=== PATIENT | male | born 1970 | race Caucasian/White ===

== ENCOUNTER 2020-12-14 14:30 | Emergency (ER) | payer BC, OTHER ==
[~2020-12-14] VITALS: Ht 190.5 cm; Wt 96.6 kg
[2020-12-14 14:38] VITALS: BP_SYST 131
[2020-12-14] MEDS ORDERED: OMEP1CAP25 PO (14:57)
[2020-12-14] MEDS ORDERED: MAG HYDROX/AL HYDROX/SIMETH 30 ML, DICYCLOMINE HCL 20 MG, LIDOCAINE VISCOUS 2% 15ML (PO... PO ONE ×3 (15:00)
[2020-12-14 15:04] VITALS: BP_SYST 131
[2020-12-14] MEDS ORDERED: METF-379 PO (19:32)
[2020-12-14] MEDS ORDERED: LIP10 PO (19:32)
== END 2020-12-14 15:06 | disposition home or self-care (01) ==
LOC: SED 14:30
DX: K21.9 Gastro-esophageal reflux disease without esophagitis (principal); R07.89 Other chest pain; E11.9 Type 2 diabetes mellitus without complications; F17.200 Nicotine dependence, unspecified, uncomplicated
CPT/HCPCS: 93005; 99283

== ENCOUNTER 2020-12-14 16:43 | Inpatient (IN) | payer BC, SELFPAY ==
[~2020-12-14] VITALS: Ht 190.5 cm; Wt 100.7 kg
[2020-12-14 16:43] VITALS: BP_SYST 152
[~2020-12-14 16:43] MED LIST: OMEP1CAP25 PO
[2020-12-14] MEDS ORDERED: KETOROLAC TROMETHAMINE 60 MG/2 ML VIAL IM ONE ×2 (16:55→17:00)
[2020-12-14 17:24] LABS: BLOOD, URINE NEGATIVE (NEGATIVE); CLARITY/URINE CLEAR (CLEAR); COLOR,URINE YELLOW (YELLOW); GLUCOSE,URINE NEGATIVE (NEGATIVE); KETONES,URINE 3+ (NEGATIVE); LEUKOCYTE ESTERASE ,URINE NEGATIVE (NEGATIVE); NITRITE, URINE NEGATIVE (NEGATIVE); PROTEIN URINE NEGATIVE (NEGATIVE); UROBILINOGEN,URINE 0.2 (0.2-1.0)
[2020-12-14 17:27] LABS: BILIRUBIN,URINE NEGATIVE (NEGATIVE)
[2020-12-14 17:28] LABS: BASOPHILS % (AUTO) 0.3 % (0.0-2.0); EOSINOPHILS % (AUTO) 0.1 % (0.0-4.0); HEMATOCRIT 41.2 % (36-54); HEMOGLOBIN 14.2 g/dL (14.0-18.0); LYMPHOCYTES % (AUTO) 6.9 % (20.5-51.5); MEAN CORPUSCULAR HEMOGLOBIN 28 pg (27-31); MEAN CORPUSCULAR HGB CONC 34 % (32-36); MEAN CORPUSCULAR VOLUME 81 fL (79.0-98.0); MONOCYTES # (AUTO) 0.9 K/uL (0.0-1.0); MONOCYTES % (AUTO) 6.3 % (1.7-9.3); NEUTROPHILS % (AUTO) 86.4 % (40.0-70.0); PLATELET COUNT (AUTO) 205 K/uL (130-430); RED BLOOD CELL COUNT(AUTO) 5.07 MIL/uL (4.2-6.2); RED CELL DISTRIBUTION WIDTH 13.7 % (9.0-15.0)
[2020-12-14 17:41] LABS: CALCIUM 9.4 mg/dL (8.4-11.0); CREATININE 1.11 mg/dL (0.55-1.30); POTASSIUM 3.6 mmol/L (3.5-5.1)
[2020-12-14 17:47] LABS: ALBUMIN 4.3 g/dL (3.4-4.8); TOTAL BILIRUBIN 0.8 mg/dL (0.0-1.0)
[2020-12-14] MEDS ORDERED: KETOROLAC TROMETHAMINE 30 MG VIAL ONE (18:00)
[2020-12-14] MEDS ORDERED: MORPHINE 4 MG/ML INJ. SYRINGE IVP ONE (19:15)
[2020-12-14] MEDS ORDERED: metroNIDAZOLE 500 mg/NS 100 ML IV ONE (19:15)
[2020-12-14] MEDS ORDERED: PIPERACILLIN/TAZO 3.38 GM in NS 50 ML IV ONE (19:15)
[2020-12-14] MEDS ORDERED: ONDANSETRON HCL 4 MG/2 ML VIAL IVP ONE (19:15)
[2020-12-14] MEDS ORDERED: NACL 0.9% 1,000 ML IV ONE ×2 (19:15)
[2020-12-14] MEDS ORDERED: METF-379 PO (19:32)
[2020-12-14] MEDS ORDERED: LIP10 PO (19:32)
[2020-12-14] MEDS ORDERED: PIPERACILLIN/TAZOBACTAM 3.375 GM/VIAL (ZOSYN) IV ONE (20:27)
[2020-12-14 21:25] VITALS: BP_SYST 129
[2020-12-14] MEDS ORDERED: MORPHINE 4 MG/ML INJ. SYRINGE IVP PRN (22:30)
[2020-12-14] MEDS ORDERED: LEVOFLOXACIN 500 MG/D5W 100 ML IV ONE (22:47)
[2020-12-14] MEDS: LEVOFLOXACIN 500 MG/D5W 100 ML IV SCH (22:50)
[2020-12-14] MEDS: NACL 0.9% 1,000 ML IV SCH (22:51)
[2020-12-15] VITALS: BP_SYST 124
[2020-12-15] MEDS ORDERED: metroNIDAZOLE 500 mg/NS 100 ML IV ONE (05:37)
[2020-12-15] MEDS: metroNIDAZOLE 500 mg/NS 100 ML IV SCH ×3 (05:47→22:08)
[2020-12-15] MEDS ORDERED: FLU VACC QS2020-21 (6 mos & up) 0.5 ML/SYRINGE I.M. PRN (06:00)
[2020-12-15] MEDS ORDERED: FLU VACC QS2020-21 (6 mos & up) 0.5 ML/SYRINGE I.M. ONE (06:27)
[2020-12-15 08:00] VITALS: BP_SYST 110
[2020-12-15 08:17] LABS: BASOPHILS # (AUTO) 0.1 K/uL (0.0-0.2); BASOPHILS % (AUTO) 0.5 % (0.0-2.0); EOSINOPHILS # (AUTO) 0.1 K/uL (0.0-0.4); EOSINOPHILS % (AUTO) 0.4 % (0.0-4.0); HEMOGLOBIN 14.2 g/dL (14.0-18.0); MEAN CORPUSCULAR HEMOGLOBIN 28 pg (27-31); MEAN CORPUSCULAR HGB CONC 34 % (32-36); MEAN CORPUSCULAR VOLUME 82 fL (79.0-98.0); MONOCYTES # (AUTO) 1.3 K/uL (0.0-1.0); MONOCYTES % (AUTO) 11.5 % (1.7-9.3); NEUTROPHILS # (AUTO) 8.8 K/uL (1.8-7.7); NEUTROPHILS % (AUTO) 78.6 % (40.0-70.0); PLATELET COUNT (AUTO) 166 K/uL (130-430); RED BLOOD CELL COUNT(AUTO) 5.16 MIL/uL (4.2-6.2); RED CELL DISTRIBUTION WIDTH 13.7 % (9.0-15.0); WHITE BLOOD COUNT (AUTO) 11.2 K/uL (4.8-10.8)
[2020-12-15 08:39] LABS: CALCIUM 8.3 mg/dL (8.4-11.0); CREATININE 0.95 mg/dL (0.55-1.30); POTASSIUM 3.7 mmol/L (3.5-5.1)
[2020-12-15 08:45] LABS: ALBUMIN 3.2 g/dL (3.4-4.8); TOTAL BILIRUBIN 0.7 mg/dL (0.0-1.0)
[2020-12-15 08:56] LABS: INR 1.1 (0.80-1.20); PROTHROMBIN TIME 11.4 SECS (9.5-12.5)
[2020-12-15] MEDS: NACL 0.9% 1,000 ML IV SCH ×2 (10:05→13:44)
[2020-12-15 11:49] VITALS: BP_SYST 121
[2020-12-15 16:00] VITALS: BP_SYST 129
[2020-12-15] MEDS ORDERED: MINERAL OIL 30 ML UDC PO ONE (18:30)
[2020-12-15 20:00] VITALS: BP_SYST 122
[2020-12-15] MEDS ORDERED: ACETAMINOPHEN 325 MG TABLET PO PRN (20:30)
[2020-12-15] MEDS ORDERED: ACETAMINOPHEN 325 MG TABLET ONE (20:46)
[2020-12-15] MEDS: LEVOFLOXACIN 500 MG/D5W 100 ML IV SCH (20:50)
[2020-12-16 00:20] VITALS: BP_SYST 117
[2020-12-16] MEDS: NACL 0.9% 1,000 ML IV SCH ×2 (03:39→17:41)
[2020-12-16] MEDS: metroNIDAZOLE 500 mg/NS 100 ML IV SCH ×3 (06:44→22:21)
[2020-12-16] MEDS: INSULIN REGULAR, HUMAN 100 UNITS/ML, 10 ML VIAL (humuLIN R) SUBCUT PRN ×2 (06:47→17:45)
[2020-12-16 07:10] LABS: BASOPHILS % (AUTO) 0.2 % (0.0-2.0); HEMATOCRIT 40.6 % (36-54); HEMOGLOBIN 13.8 g/dL (14.0-18.0); LYMPHOCYTES # (AUTO) 1.1 K/uL (1.0-5.5); LYMPHOCYTES % (AUTO) 6.6 % (20.5-51.5); MEAN CORPUSCULAR HEMOGLOBIN 28 pg (27-31); MEAN CORPUSCULAR HGB CONC 34 % (32-36); MEAN CORPUSCULAR VOLUME 82 fL (79.0-98.0); MONOCYTES % (AUTO) 12.1 % (1.7-9.3); NEUTROPHILS # (AUTO) 13.1 K/uL (1.8-7.7); NEUTROPHILS % (AUTO) 81.1 % (40.0-70.0); PLATELET COUNT (AUTO) 155 K/uL (130-430); RED BLOOD CELL COUNT(AUTO) 4.95 MIL/uL (4.2-6.2); RED CELL DISTRIBUTION WIDTH 13.8 % (9.0-15.0); WHITE BLOOD COUNT (AUTO) 16.1 K/uL (4.8-10.8)
[2020-12-16 07:23] LABS: ALBUMIN 2.9 g/dL (3.4-4.8); CALCIUM 8.2 mg/dL (8.4-11.0); CREATININE 0.94 mg/dL (0.55-1.30); POTASSIUM 3.6 mmol/L (3.5-5.1)
[2020-12-16 07:52] LABS: TOTAL BILIRUBIN 1.1 mg/dL (0.0-1.0)
[2020-12-16 08:00] VITALS: BP_SYST 122
[2020-12-16 12:00] VITALS: BP_SYST 124
[2020-12-16 16:00] VITALS: BP_SYST 132
[2020-12-16 20:00] VITALS: BP_SYST 118
[2020-12-16] MEDS: LEVOFLOXACIN 500 MG/D5W 100 ML IV SCH (21:14)
[2020-12-17] VITALS (7 sets, daily range): BP systolic 112–127
[2020-12-17] MEDS: NACL 0.9% 1,000 ML IV SCH (05:54)
[2020-12-17] MEDS: metroNIDAZOLE 500 mg/NS 100 ML IV SCH ×2 (05:54→17:00)
[2020-12-17 10:04] LABS: ALBUMIN 2.5 g/dL (3.4-4.8); BILIRUBIN,DIRECT 0.2 mg/dL (0.0-0.3); TOTAL BILIRUBIN 0.8 mg/dL (0.0-1.0)
[2020-12-17] MEDS ORDERED: ONDANSETRON HCL 4 MG/2 ML VIAL IVP PRN (14:45)
[2020-12-17] MEDS ORDERED: NALOXONE HCL 0.4 MG/ML AMP (NARCAN) IVP PRN ×2 (14:45)
[2020-12-17] MEDS ORDERED: HYDROcodone/ACETAMIN 5-325 MG TAB (NORCO/ VICODIN) PO PRN (14:45)
[2020-12-17] MEDS ORDERED: HYDROmorphone 1 MG INJ. 1 MG/ML AMPUL IVP PRN (14:45)
[2020-12-17] MEDS ORDERED: ACETAMINOPHEN 325 MG TABLET PO PRN (14:45)
[2020-12-17] MEDS ORDERED: INSULIN REGULAR, HUMAN 100 UNITS/ML, 10 ML VIAL ONE (15:35)
[2020-12-17] MEDS: INSULIN REGULAR, HUMAN 100 UNITS/ML, 10 ML VIAL (humuLIN R) SUBCUT PRN (15:37)
[2020-12-17] MEDS: D5/0.45 NS 1,000 ML IV SCH (16:04)
[2020-12-17] MEDS: CEFAZOLIN 2 GM IVPB PREMIX 50 ML IV SCH ×2 (17:00→23:05)
[2020-12-18] MEDS: metroNIDAZOLE 500 mg/NS 100 ML IV SCH (01:21)
[2020-12-18] MEDS: D5/0.45 NS 1,000 ML IV SCH ×2 (01:26→10:54)
[2020-12-18] MEDS: INSULIN REGULAR, HUMAN 100 UNITS/ML, 10 ML VIAL (humuLIN R) SUBCUT PRN ×2 (06:00→11:41)
[2020-12-18 07:56] LABS: BASOPHILS % (AUTO) 0.1 % (0.0-2.0); EOSINOPHILS % (AUTO) 0.1 % (0.0-4.0); HEMOGLOBIN 11.9 g/dL (14.0-18.0); LYMPHOCYTES # (AUTO) 0.8 K/uL (1.0-5.5); MEAN CORPUSCULAR HEMOGLOBIN 27 pg (27-31); MEAN CORPUSCULAR HGB CONC 34 % (32-36); MEAN CORPUSCULAR VOLUME 81 fL (79.0-98.0); MONOCYTES % (AUTO) 9.3 % (1.7-9.3); NEUTROPHILS # (AUTO) 9.4 K/uL (1.8-7.7); NEUTROPHILS % (AUTO) 83.5 % (40.0-70.0); PLATELET COUNT (AUTO) 183 K/uL (130-430); RED BLOOD CELL COUNT(AUTO) 4.33 MIL/uL (4.2-6.2); RED CELL DISTRIBUTION WIDTH 13.6 % (9.0-15.0); WHITE BLOOD COUNT (AUTO) 11.2 K/uL (4.8-10.8)
[2020-12-18 08:05] VITALS: BP_SYST 116
[2020-12-18 09:27] LABS: ALBUMIN 2.2 g/dL (3.4-4.8); CREATININE 0.72 mg/dL (0.55-1.30); TOTAL BILIRUBIN 0.3 mg/dL (0.0-1.0)
[2020-12-18 12:46] VITALS: BP_SYST 114
[2020-12-18 14:09] VITALS: BP_SYST 115
== END 2020-12-18 15:10 | disposition home or self-care (01) | DRG 417 ==
LOC: SED 16:43 → SMU 19:14
PROVIDERS: ADMIT Internal Medicine; ATTEND Internal Medicine
PROC: 0FT44ZZ Resection of Gallbladder, Percutaneous Endoscopic Approach (ICD-10-PCS; 2020-12-17)
PROC: 3E1M38Z Irrigation of Peritoneal Cavity using Irrigating Substance, Percutaneous Approach (ICD-10-PCS; 2020-12-17)
PROC: BF121ZZ Fluoroscopy of Gallbladder using Low Osmolar Contrast (ICD-10-PCS; 2020-12-17)
PROC: 0FC98ZZ Extirpation of Matter from Common Bile Duct, Via Natural or Artificial Opening Endoscopic (ICD-10-PCS; principal; 2020-12-17 13:15)
DX: K80.42 Calculus of bile duct with acute cholecystitis without obstruction (principal); K85.10 Biliary acute pancreatitis without necrosis or infection; K59.00 Constipation, unspecified; K82.A1 Gangrene of gallbladder in cholecystitis; Z20.822 Contact with and (suspected) exposure to COVID-19; E78.5 Hyperlipidemia, unspecified
CPT/HCPCS: 36415; 71045; 74300; 76376; 76700-TC; 80053; 80076; 81003; 82150-TC; 82948; 82962; 83605; 83690-TC; 85025; 85610-TC; 86886; 86900; 86901; 87040-TC; 87081; 88304; 96361; 96365; 96366; 96372; 96375; 99291; C1727; J0690; J1815; J1885; J1956; J2270; J2405; J2543; J3490; Q9967